=== PATIENT | male | born 1975 | race Caucasian/White ===

== ENCOUNTER 2020-04-22 07:42 | Inpatient (IN) | payer BC, OTHER ==
[~2020-04-22] VITALS: Ht 172.7 cm; Wt 155.0 kg
[2020-04-22] MEDS ORDERED: ASPIRIN CHEWABLE 81 MG TABLET. PO ONE (08:00)
[2020-04-22] MEDS ORDERED: ONDANSETRON PF 4 MG/2 ML VIAL. IV ONE (08:00)
[2020-04-22] MEDS ORDERED: fentaNYL PF VIAL 100 MCG/2 ML VIAL IV ONE (08:00)
[2020-04-22 08:19] LABS: BASO # 0.1 x10^3/uL (0.0-0.2); BASO % 1 % (0-3); EOS # 0.2 x10^3/uL (0.0-0.7); EOS % 3 % (0-3); HEMATOCRIT 43.3 % (39.0-53.0); HEMOGLOBIN 15.1 g/dL (13.0-17.5); LYMPH # 2.4 x10^3/uL (1.0-4.8); LYMPH % 32 % (24-48); MEAN CORPUSCULAR HEMOGLOBIN 29 pg (25-35); MEAN CORPUSCULAR HGB CONC 35 g/dL (31-37); MEAN CORPUSCULAR VOLUME 83 fL (79-100); MONO # 0.6 x10^3/uL (0.0-1.1); MONO % 8 % (0-9); NEUT # 4.2 x10^3/uL (1.8-7.7); NEUT % 56 % (31-73); PLATELET COUNT 295 x10^3/uL (140-400); RED BLOOD COUNT 5.25 x10^6/uL (4.30-5.70); RED CELL DISTRIBUTION WIDTH 13.6 % (11.5-14.5); WHITE BLOOD COUNT 7.5 x10^3/uL (4.0-11.0)
[2020-04-22 08:24] LABS: CALCIUM 8.7 mg/dL (8.5-10.1); CREATININE 1.1 mg/dL (0.7-1.3); GFR 72.1
[2020-04-22 08:30] LABS: ALBUMIN 3.6 g/dL (3.4-5.0); ALBUMIN/GLOBULIN RATIO 1.2 (1.0-1.7); MAGNESIUM 2.1 mg/dL (1.8-2.4); TOTAL BILIRUBIN 0.3 mg/dL (0.2-1.0); TOTAL PROTEIN 6.7 g/dL (6.4-8.2)
--- NOTE | 2020-04-22 08:30 | RAD ---
CHEST AP ONLY History: Chest pain Comparison: July 07, 2012 Findings: Single view of the chest is submitted. There is no infiltrate, pneumothorax, or effusion. The pericardial cardiac silhouette is within normal limits in size. Impression: 1. There is no convincing radiographic evidence of acute cardiopulmonary disease. Electronically signed by: Bryce Noriega MD (04/22/2020 8:27 AM) [id number]
--- NOTE | 2020-04-22 09:23 | EKG ---
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
--- NOTE | 2020-04-22 10:28 | PHYS DOC ---
Past Medical History Past Medical History: No Pertinent History Past Surgical History: Other Additional Past Surgical Histo: VASECOMY, GALLBLADDER REMOVED Smoking Status: Light Tobacco Smoker Alcohol Use: None General Adult EDM: Chief Complaint: CHEST PAIN HPI: HPI: Patient is a 45-year-old male who presents with chest discomfort. He states it feels like a cramping in his chest. He has had a history of chronic palpitations he is worn a heart monitor in the past and it is always checked out okay. Is been a little more frequent over the last few days. He denies any shortness of breath. He denies any dyspnea on exertion. He denies any cough congestion or other upper respiratory type symptoms. He said no nausea vomiting or diaphoresis. [] Review of Systems: Review of Systems: Constitutional: Denies fever or chills. [] Eyes: Denies change in visual acuity. [] HENT: Denies nasal congestion or sore throat. [] Respiratory: Denies cough or shortness of breath. [] Cardiovascular: Per HPI. [] GI: Denies abdominal pain, nausea, vomiting, bloody stools or diarrhea. [] : Denies dysuria. [] Musculoskeletal: Denies back pain or joint pain. [] Integument: Denies rash. [] Neurologic: Denies headache, focal weakness or sensory changes. [] Endocrine: Denies polyuria or polydipsia. [] Lymphatic: Denies swollen glands. [] Psychiatric: Denies depression or anxiety. [] Heart Score: HEART Score for Chest Pain: HEART Score for Chest Pain Response (Comments) Value History Moderately Suspicious 1 ECG Nonspecific Repolarizatio 1 Age >45 - < 65 1 Risk Factors 1 or 2 Risk Factors 1 Troponin >1-<3x Normal Limit 1 Total 5 Risk Factors: Risk Factors: DM, Current or recent (<one month) smoker, HTN, HLP, family history of CAD, obesity. Risk Scores: Score 0 - 3: 2.5% MACE over next 6 weeks - Discharge Home Score 4 - 6: 20.3% MACE over next 6 weeks - Admit for Clinical Observation Score 7 - 10: 72.7% MACE over next 6 weeks - Early Invasive Strategies Current Medications: Current Medications Medications (Trade) Dose Ordered Sig/Jalen Start Time Stop Time Status Last Admin Dose Admin Aspirin (Aspirin Chewable) 324 mg 1X ONCE 04/22/20 08:00 04/22/20 08:10 DC 04/22/20 08:25 324 MG Fentanyl Citrate (Fentanyl 2ml Vial) 50 mcg 1X ONCE 04/22/20 08:00 04/22/20 08:10 DC 04/22/20 08:31 50 MCG Ondansetron HCl (Zofran) 4 mg 1X ONCE 04/22/20 08:00 04/22/20 08:10 DC 04/22/20 08:28 4 MG Allergies: Allergies: Allergies Coded Allergies Type Severity Reaction Last Updated Verified No Known Drug Allergies 04/22/20 No Physical Exam: PE: Constitutional: Well developed, well nourished, no acute distress, non-toxic appearance. [] HENT: Normocephalic, atraumatic, bilateral external ears normal, oropharynx moist, no oral exudates, nose normal. [] Eyes: PERRLA, EOMI, conjunctiva normal, no discharge. [] Neck: Normal range of motion, no tenderness, supple, no stridor. [] Cardiovascular:Heart rate regular rhythm, no murmur [] Lungs & Thorax: Bilateral breath sounds clear to auscultation [] Abdomen: Bowel sounds normal, soft, no tenderness, no masses, no pulsatile masses. [] Skin: Warm, dry, no erythema, no rash. [] Back: No tenderness, no CVA tenderness. [] Extremities: No tenderness, no cyanosis, no clubbing, ROM intact, no edema. [] Neurologic: Alert and oriented X 3, normal motor function, normal sensory function, no focal deficits noted. [] Psychologic: Affect normal, judgement normal, mood normal. [] Current Patient Data: Labs: Laboratory Tests Test 04/22/20 08:02 White Blood Count 7.5 x10^3/uL (4.0-11.0) Red Blood Count 5.25 x10^6/uL (4.30-5.70) Hemoglobin 15.1 g/dL (13.0-17.5) Hematocrit 43.3 % (39.0-53.0) Mean Corpuscular Volume 83 fL (79-100) Mean Corpuscular Hemoglobin 29 pg (25-35) Mean Corpuscular Hemoglobin Concent 35 g/dL (31-37) Red Cell Distribution Width 13.6 % (11.5-14.5) Platelet Count 295 x10^3/uL (140-400) Neutrophils (%) (Auto) 56 % (31-73) Lymphocytes (%) (Auto) 32 % (24-48) Monocytes (%) (Auto) 8 % (0-9) Eosinophils (%) (Auto) 3 % (0-3) Basophils (%) (Auto) 1 % (0-3) Neutrophils # (Auto) 4.2 x10^3/uL (1.8-7.7) Lymphocytes # (Auto) 2.4 x10^3/uL (1.0-4.8) Monocytes # (Auto) 0.6 x10^3/uL (0.0-1.1) Eosinophils # (Auto) 0.2 x10^3/uL (0.0-0.7) Basophils # (Auto) 0.1 x10^3/uL (0.0-0.2) Sodium Level 141 mmol/L (136-145) Potassium Level 4.0 mmol/L (3.5-5.1) Chloride Level 105 mmol/L (98-107) Carbon Dioxide Level 26 mmol/L (21-32) Anion Gap 10 (6-14) Blood Urea Nitrogen 12 mg/dL (8-26) Creatinine 1.1 mg/dL (0.7-1.3) Estimated GFR (Cockcroft-Gault) 72.1 BUN/Creatinine Ratio 11 (6-20) Glucose Level 110 mg/dL (70-99) H Calcium Level 8.7 mg/dL (8.5-10.1) Magnesium Level 2.1 mg/dL (1.8-2.4) Total Bilirubin 0.3 mg/dL (0.2-1.0) Aspartate Amino Transferase (AST) 36 U/L (15-37) Alanine Aminotransferase (ALT) 61 U/L (16-63) Alkaline Phosphatase 69 U/L (46-116) Troponin I Quantitative 0.036 ng/mL (0.000-0.055) Total Protein 6.7 g/dL (6.4-8.2) Albumin 3.6 g/dL (3.4-5.0) Albumin/Globulin Ratio 1.2 (1.0-1.7) Lipase 138 U/L (73-393) Laboratory Tests 04/22/20 08:02 Laboratory Tests 04/22/20 08:02 Vital Signs: Vital Signs Date Time Temp Pulse Resp B/P (MAP) Pulse Ox O2 Delivery O2 Flow Rate FiO2 04/22/20 09:15 59 138/83 (101) 98 Room Air 04/22/20 08:31 18 04/22/20 07:51 98.0 98.0 EKG: EKG: EKG: Normal sinus rhythm rate of [address]-T changes [] Radiology/Procedures: Radiology/Procedures: [] Impression: PROCEDURE: CHEST AP ONLY CHEST AP ONLY History: Chest pain Comparison: July 07, 2012 Findings: Single view of the chest is submitted. There is no infiltrate, pneumothorax, or effusion. The pericardial cardiac silhouette is within normal limits in size. Impression: 1. There is no convincing radiographic evidence of acute cardiopulmonary disease. Course & Med Decision Making: Course & Med Decision Making Pertinent Labs and Imaging studies reviewed. (See chart for details) [] Dragon Disclaimer: Dragon Disclaimer: This electronic medical record was generated, in whole or in part, using a voice recognition dictation system. Departure Departure Impression: Primary Impression: Chest pain Qualified Codes: R07.2 - Precordial pain Disposition: ADMITTED INPATIENT Admitting Physician: JAXSON Condition: STABLE Referrals: RITA THAYER MD (PCP) Justicifation of Admission Dx: Justifications for Admission: Justification of Admission Dx: Yes Angina: [facility] ISSA NANCE DO Apr 22, 2020 10:28
[2020-04-22] MEDS ORDERED: ONDANSETRON PF 4 MG/2 ML VIAL. IV PRN (10:30)
[2020-04-22] MEDS ORDERED: fentaNYL PF VIAL 100 MCG/2 ML VIAL IV PRN (10:30)
[2020-04-22] MEDS ORDERED: NITROGLYCERIN SUBLINGUAL 0.4 MG BOTTLE OF 25. SL PRN (10:30)
[2020-04-22] MEDS ORDERED: ACETAMINOPHEN 325 MG TABLET. PO PRN (10:30)
[2020-04-22 10:47] LABS: BILIRUBIN,URINE NEGATIVE (NEG); CLARITY,URINE CLEAR; COLOR,URINE YELLOW; NITRITE,URINE NEGATIVE (NEG); PROTEIN,URINE NEGATIVE (NEG-TRACE); UROBILINOGEN,URINE 0.2 mg/dL (0.2 mg/dL)
[2020-04-22 10:54] LABS: BARBITURATES NEG (NEG); BENZODIAZEPINES NEG (NEG); CANNABINOIDS NEG (NEG); COCAINE NEG (NEG); METHADONE NEG (NEG); OPIATES NEG (NEG); PHENCYCLIDINE NEG (NEG)
[2020-04-22 10:58] LABS: AMPHETAMINE/METHAMPHETAMINE NEG (NEG)
[2020-04-22 11:24] LABS: BACTERIA,URINE 0 /HPF (0-FEW); RBC,URINE 0 /HPF (0-2); SQUAMOUS EPITHELIAL CELL,UR OCC /LPF; WBC,URINE 0 /HPF (0-4)
[2020-04-22 11:45] VITALS: BP 151/85
--- NOTE | 2020-04-22 11:45 | NUR ---
Patient arrived to room 260 via wheelchair from ER at 1145. Patient A&OX4. VSS. No complaints of pain at this time. The patient, EDWARD MILLER, 45 y/o, M admitted by LOS SOARES MD, was given written information regarding hospital policies, unit procedures and contact persons. Valuables were checked and noted. Will continue to monitor.
[2020-04-22] MEDS ORDERED: OMEP40CA45 PO (12:12)
--- NOTE | 2020-04-22 13:02 | PDOC1 ---
History and Physical Date of Admission Date of Admission DATE: 04/22/20 TIME: 13:02 Identification/Chief Complaint Chief Complaint seen in er with angina 45-year-old male who presents with chest discomfort. feels like a cramping in his chest. He has had a history of chronic palpitations /// more frequent over the last few days. denies any shortness of breath. troponin i ok , not related to meals denies dyspnea on exertion. //denies cough congestion or other upper respiratory symptoms. He said no nausea vomiting or diaphoresis. no fever[] Past Medical History Past Medical History Past Medical History Past Medical History Past Medical History: No Pertinent History Past Surgical History: Other Additional Past Surgical Histo: VASECOMY, GALLBLADDER REMOVED Smoking Status: Light Tobacco Smoker Alcohol Use: None fhx copd GI: GERD Family History Family History: Chronic Bronchitis, Hypertension, Hypothyroidism Social History Smoke: No ALCOHOL: none Drugs: None Current Problem List Problem List Problems Medical Problems: (1) Chest pain Status: Acute Current Medications Current Medications Current Medications Aspirin (Aspirin Chewable) 324 mg 1X ONCE PO Last administered on 04/22/20at 08:25; Start 04/22/20 at 08:00; Stop 04/22/20 at 08:10; Status DC Fentanyl Citrate (Fentanyl 2ml Vial) 50 mcg 1X ONCE IV Last administered on 04/22/20at 08:31; Start 04/22/20 at 08:00; Stop 04/22/20 at 08:10; Status DC Ondansetron HCl (Zofran) 4 mg 1X ONCE IV Last administered on 04/22/20at 08:28; Start 04/22/20 at 08:00; Stop 04/22/20 at 08:10; Status DC Ondansetron HCl (Zofran) 4 mg PRN Q8HRS PRN IV NAUSEA/VOMITING; Start 04/22/20 at 10:30; Stop 04/23/20 at 10:29 Fentanyl Citrate (Fentanyl 2ml Vial) 50 mcg PRN Q1HR PRN IV PAIN; Start 04/22/20 at 10:30; Stop 04/23/20 at 10:29 Acetaminophen (Tylenol) 650 mg PRN Q4HRS PRN PO FEVER > 100.3'F; Start 04/22/20 at 10:30; Stop 04/23/20 at 10:29 Nitroglycerin (Nitrostat) 0.4 mg PRN Q5MIN PRN SL CHEST PAIN; Start 04/22/20 at 10:30; Stop 04/23/20 at 10:29 Active Scripts Active Reported Omeprazole 40 Mg Capsule. 1 Cap PO DAILY Allergies Allergies: Coded Allergies: No Known Drug Allergies (Unverified , 04/22/20) ROS Review of System Review of Systems: Review of Systems: Constitutional: Denies fever or chills. [] Eyes: Denies change in visual acuity. [] HENT: Denies nasal congestion or sore throat. [] Respiratory: Denies cough or shortness of breath. [] Cardiovascular: Per HPI. [] GI: Denies abdominal pain, nausea, vomiting, bloody stools or diarrhea. [] : Denies dysuria. [] Musculoskeletal: Denies back pain or joint pain. [] Integument: Denies rash. [] Neurologic: Denies headache, focal weakness or sensory changes. [] Endocrine: Denies polyuria or polydipsia. [] Lymphatic: Denies swollen glands. [] Psychiatric: Denies depression or anxiety. [] 14 pt ros otherwise neg PSYCHOLOGICAL ROS: No: Anxiety, Behavioral Disorder, Concentration difficultie, Decreased libido, Depression, Disorientation, Hallucinations, Hostility, Irritablity, Memory difficulties, Mood Swings, Obsessive thoughts, Physical abuse, Sexual abuse, Sleep disturbances, Suicidal ideation, Other ALLERGY AND IMMUNOLOGY: No: Hives, Insect Bite Sensitivity, Itchy/Watery Eyes, Nasal Congestion, Post Nasal Drip, Seasonal Allergies, Other Hematological and Lymphatic: No: Bleeding Problems, Blood Clots, Blood Transfusions, Brusing, Night Sweats, Pallor, Swollen Lymph Nodes, Other Respiratory: No: Cough, Hemoptysis, Orthopnea, Pleuritic Pain, Shortness of breath, SOB with excertion, Sputum Changes, Stridor, Tachypnea, Wheezing, Other Cardiovascular: yes Chest Pain, yes Palpitations Gastrointestinal: No Nausea, No Vomiting, No Abdominal Pain, No Diarrhea, No Constipation, No Melena, No Hematochezia, No Other Genitourinary: No Dysuria, No Frequency, No Incontinence, No Hematuria, No Ret ention, No Discharge, No Urgency, No Pain, No Flank Pain, No Other, No , No , No , No , No , No , No Musculoskeletal: No Gait Disturbance, No Joint Pain, No Joint Stiffness, No Joint Swelling, No Muscle Pain, No Muscular Weakness, No Pain In:, No Swelling In:, No Other Neurological: No Behavorial Changes, No Bowel/Bladder ControlChng, No Confusion, No Dizziness, No Gait Disturbance, No Headaches, No Impaired Coord/balance, No Memory Loss, No Numbness/Tingling, No Seizures, No Speech Problems, No Tremors, No Visual Changes, No Weakness, No Other Physical Exam Physical Exam Constitutional: Well developed, well nourished, no acute distress, non-toxic appearance. [] HENT: Normocephalic, atraumatic, oropharynx moist, no oral exudates, nose normal. [] Eyes: PERRLA, EOMI, conjunctiva normal, no discharge. [] Neck: Normal range of motion, no tenderness, supple, no stridor. [] Cardiovascular:Heart rate regular rhythm, no murmur [] Lungs & Thorax: Bilateral breath sounds clear to auscultation [] Abdomen: Bowel sounds normal, soft, no tenderness, no masses, no pulsatile masses. [] Skin: Warm, dry, no erythema, no rash. [] Back: No tenderness, no CVA tenderness. [] Extremities: No tenderness, no cyanosis, no clubbing, ROM intact, no edema. [] Neurologic: Alert and oriented X 3, normal motor function, normal sensory function, no focal deficits noted. [] Psychologic: Affect normal, judgment normal, mood normal. [] General: Alert, Oriented X3, Cooperative, No acute distress HEENT: Atraumatic, PERRLA, EOMI, Mucous membr. moist/pink Lungs: Clear to auscultation, Normal air movement Heart: S1S2, RRR, no thrills, no gallops Breasts: Not examined Abdomen: Normal bowel sounds, Soft Rectal Exam: not examined PELVIC: Examination not indicated Extremities: No cyanosis Neuro: Normal speech, Cranial nerves 3-12 NL Psych/Mental Status: Mental status NL, Mood NL Vitals Vitals Vital Signs Date Time Temp Pulse Resp B/P (MAP) Pulse Ox O2 Delivery O2 Flow Rate FiO2 04/22/20 11:45 97.9 64 18 151/85 (107) 98 Room Air 97.9 Labs Labs Laboratory Tests Test 04/22/20 08:02 04/22/20 10:36 White Blood Count 7.5 x10^3/uL (4.0-11.0) Red Blood Count 5.25 x10^6/uL (4.30-5.70) Hemoglobin 15.1 g/dL (13.0-17.5) Hematocrit 43.3 % (39.0-53.0) Mean Corpuscular Volume 83 fL (79-100) Mean Corpuscular Hemoglobin 29 pg (25-35) Mean Corpuscular Hemoglobin Concent 35 g/dL (31-37) Red Cell Distribution Width 13.6 % (11.5-14.5) Platelet Count 295 x10^3/uL (140-400) Neutrophils (%) (Auto) 56 % (31-73) Lymphocytes (%) (Auto) 32 % (24-48) Monocytes (%) (Auto) 8 % (0-9) Eosinophils (%) (Auto) 3 % (0-3) Basophils (%) (Auto) 1 % (0-3) Neutrophils # (Auto) 4.2 x10^3/uL (1.8-7.7) Lymphocytes # (Auto) 2.4 x10^3/uL (1.0-4.8) Monocytes # (Auto) 0.6 x10^3/uL (0.0-1.1) Eosinophils # (Auto) 0.2 x10^3/uL (0.0-0.7) Basophils # (Auto) 0.1 x10^3/uL (0.0-0.2) Sodium Level 141 mmol/L (136-145) Potassium Level 4.0 mmol/L (3.5-5.1) Chloride Level 105 mmol/L (98-107) Carbon Dioxide Level 26 mmol/L (21-32) Anion Gap 10 (6-14) Blood Urea Nitrogen 12 mg/dL (8-26) Creatinine 1.1 mg/dL (0.7-1.3) Estimated GFR (Cockcroft-Gault) 72.1 BUN/Creatinine Ratio 11 (6-20) Glucose Level 110 mg/dL (70-99) Calcium Level 8.7 mg/dL (8.5-10.1) Magnesium Level 2.1 mg/dL (1.8-2.4) Total Bilirubin 0.3 mg/dL (0.2-1.0) Aspartate Amino Transf (AST/SGOT) 36 U/L (15-37) Alanine Aminotransferase (ALT/SGPT) 61 U/L (16-63) Alkaline Phosphatase 69 U/L (46-116) Troponin I Quantitative 0.036 ng/mL (0.000-0.055) Total Protein 6.7 g/dL (6.4-8.2) Albumin 3.6 g/dL (3.4-5.0) Albumin/Globulin Ratio 1.2 (1.0-1.7) Lipase 138 U/L (73-393) Urine Collection Type Unknown Urine Color Yellow Urine Clarity Clear Urine pH 5.0 (<5.0-8.0) Urine Specific [place] 1.025 (1.000-1.030) Urine Protein Negative mg/dL (NEG-TRACE) Urine Glucose (UA) Negative mg/dL (NEG) Urine Ketones (Stick) Negative mg/dL (NEG) Urine Blood Negative (NEG) Urine Nitrite Negative (NEG) Urine Bilirubin Negative (NEG) Urine Urobilinogen Dipstick 0.2 mg/dL (0.2 mg/dL) Urine Leukocyte Esterase Negative (NEG) Urine RBC 0 /HPF (0-2) Urine WBC 0 /HPF (0-4) Urine Squamous Epithelial Cells Occ /LPF Urine Bacteria 0 /HPF (0-FEW) Urine Mucus Marked /LPF Urine Opiates Screen Neg (NEG) Urine Methadone Screen Neg (NEG) Urine Barbiturates Neg (NEG) Urine Phencyclidine Screen Neg (NEG) Urine Amphetamine/Methamphetamine Neg (NEG) Urine Benzodiazepines Screen Neg (NEG) Urine Cocaine Screen Neg (NEG) Urine Cannabinoids Screen Neg (NEG) Urine Ethyl Alcohol Neg (NEG) Laboratory Tests Test 04/22/20 08:02 04/22/20 10:36 White Blood Count 7.5 x10^3/uL (4.0-11.0) Red Blood Count 5.25 x10^6/uL (4.30-5.70) Hemoglobin 15.1 g/dL (13.0-17.5) Hematocrit 43.3 % (39.0-53.0) Mean Corpuscular Volume 83 fL (79-100) Mean Corpuscular Hemoglobin 29 pg (25-35) Mean Corpuscular Hemoglobin Concent 35 g/dL (31-37) Red Cell Distribution Width 13.6 % (11.5-14.5) Platelet Count 295 x10^3/uL (140-400) Neutrophils (%) (Auto) 56 % (31-73) Lymphocytes (%) (Auto) 32 % (24-48) Monocytes (%) (Auto) 8 % (0-9) Eosinophils (%) (Auto) 3 % (0-3) Basophils (%) (Auto) 1 % (0-3) Neutrophils # (Auto) 4.2 x10^3/uL (1.8-7.7) Lymphocytes # (Auto) 2.4 x10^3/uL (1.0-4.8) Monocytes # (Auto) 0.6 x10^3/uL (0.0-1.1) Eosinophils # (Auto) 0.2 x10^3/uL (0.0-0.7) Basophils # (Auto) 0.1 x10^3/uL (0.0-0.2) Sodium Level 141 mmol/L (136-145) Potassium Level 4.0 mmol/L (3.5-5.1) Chloride Level 105 mmol/L (98-107) Carbon Dioxide Level 26 mmol/L (21-32) Anion Gap 10 (6-14) Blood Urea Nitrogen 12 mg/dL (8-26) Creatinine 1.1 mg/dL (0.7-1.3) Estimated GFR (Cockcroft-Gault) 72.1 BUN/Creatinine Ratio 11 (6-20) Glucose Level 110 mg/dL (70-99) Calcium Level 8.7 mg/dL (8.5-10.1) Magnesium Level 2.1 mg/dL (1.8-2.4) Total Bilirubin 0.3 mg/dL (0.2-1.0) Aspartate Amino Transf (AST/SGOT) 36 U/L (15-37) Alanine Aminotransferase (ALT/SGPT) 61 U/L (16-63) Alkaline Phosphatase 69 U/L (46-116) Troponin I Quantitative 0.036 ng/mL (0.000-0.055) Total Protein 6.7 g/dL (6.4-8.2) Albumin 3.6 g/dL (3.4-5.0) Albumin/Globulin Ratio 1.2 (1.0-1.7) Lipase 138 U/L (73-393) Urine Collection Type Unknown Urine Color Yellow Urine Clarity Clear Urine pH 5.0 (<5.0-8.0) Urine Specific [place] 1.025 (1.000-1.030) Urine Protein Negative mg/dL (NEG-TRACE) Urine Glucose (UA) Negative mg/dL (NEG) Urine Ketones (Stick) Negative mg/dL (NEG) Urine Blood Negative (NEG) Urine Nitrite Negative (NEG) Urine Bilirubin Negative (NEG) Urine Urobilinogen Dipstick 0.2 mg/dL (0.2 mg/dL) Urine Leukocyte Esterase Negative (NEG) Urine RBC 0 /HPF (0-2) Urine WBC 0 /HPF (0-4) Urine Squamous Epithelial Cells Occ /LPF Urine Bacteria 0 /HPF (0-FEW) Urine Mucus Marked /LPF Urine Opiates Screen Neg (NEG) Urine Methadone Screen Neg (NEG) Urine Barbiturates Neg (NEG) Urine Phencyclidine Screen Neg (NEG) Urine Amphetamine/Methamphetamine Neg (NEG) Urine Benzodiazepines Screen Neg (NEG) Urine Cocaine Screen Neg (NEG) Urine Cannabinoids Screen Neg (NEG) Urine Ethyl Alcohol Neg (NEG) Images Images HEST AP ONLY History: Chest pain Comparison: July 07, 2012 Findings: Single view of the chest is submitted. There is no infiltrate, pneumothorax, or effusion. The pericardial cardiac silhouette is within normal limits in size. Impression: 1. There is no convincing radiographic evidence of acute cardiopulmonary disease. Electronically signed by: Randall Holder MD (04/22/2020 8:27 AM) [id number] DICTATED and SIGNED BY: RANDALL HOLDER MD DATE: 04/22/20 0827 VTE Prophylaxis Ordered VTE Prophylaxis Devices: Yes VTE Pharmacological Prophylaxi: Yes Assessment/Plan Assessment/Plan Impression: Chest pain MORBID OBESITY GERD hyperlipidemia ADMITTED cvc bed Cardiology consult serial troponin i PROTONIX PO statin dvt prophylaxis D/W ER DR and family in room Justicifation of Admission Dx: Justifications for Admission: Justification of Admission Dx: Yes Angina: [place] Worsening of Sym LOS SOARES MD Apr 22, 2020 13:02
--- NOTE | 2020-04-22 13:55 | PDOC2 ---
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 Munoz SOURCE Source: Chart review, Patient HISTORY OF PRESENT ILLNESS HISTORY OF PRESENT ILLNESS This is a 45 yo male who presented secondary to chest pain. Patient reports pain began a couple days ago. Located in his left chest. Describes as stabbing in nature. This morning. Had some dizziness and was slightly SOA with the pain so he came in for further evaluation and treatment. Reports h/o intermittent fluttering in his chest for which he has worn a heart monitor a couple of times. Denies any palpitations or fluttering while experiencing the stabbing pain in his left chest. NO diaphoresis or nausea/vomiting. PAST MEDICAL HISTORY GI: GERD PAST SURGICAL HISTORY Past Surgical History: Cholecystectomy, Other (vasectomy) FAMILY HISTORY Family History: Coronary Artery Disease (father ), Diabetes, Hypertension SOCIAL HISTORY Smoke: No ALCOHOL: occassional Drugs: None Lives: with Family CURRENT MEDICATIONS CURRENT MEDICATIONS Current Medications Medications (Trade) Dose Ordered Sig/Jaeln Route PRN Reason Start Time Stop Time Status Last Admin Dose Admin Aspirin (Aspirin Chewable) 324 mg 1X ONCE PO 04/22/20 08:00 04/22/20 08:10 DC 04/22/20 08:25 Fentanyl Citrate (Fentanyl 2ml Vial) 50 mcg 1X ONCE IV 04/22/20 08:00 04/22/20 08:10 DC 04/22/20 08:31 Ondansetron HCl (Zofran) 4 mg 1X ONCE IV 04/22/20 08:00 04/22/20 08:10 DC 04/22/20 08:28 ALLERGIES ALLERGIES: Coded Allergies: No Known Drug Allergies (Unverified , 04/22/20) ROS Review of System 14 point ROS conducted with pertinent positives noted above in HPI PHYSICAL EXAM General: Alert, Oriented X3, Cooperative, No acute distress HEENT: Atraumatic, Mucous membr. moist/pink Lungs: Clear to auscultation, Normal air movement Heart: Regular rate Abdomen: Soft, Other (obese ) Extremities: No edema, Normal pulses Skin: No significant lesion Neuro: Normal speech, Sensation intact Psych/Mental Status: Mental status NL, Mood NL MUSCULOSKELETAL: No deformity VITALS/I&O VITALS/I&O: Vital Signs Date Time Temp Pulse Resp B/P (MAP) Pulse Ox O2 Delivery O2 Flow Rate FiO2 04/22/20 12:00 Room Air 04/22/20 11:45 97.9 64 18 151/85 (107) 98 97.9 LABS Lab: Laboratory Tests Test 04/22/20 08:02 04/22/20 10:36 White Blood Count 7.5 x10^3/uL (4.0-11.0) Red Blood Count 5.25 x10^6/uL (4.30-5.70) Hemoglobin 15.1 g/dL (13.0-17.5) Hematocrit 43.3 % (39.0-53.0) Mean Corpuscular Volume 83 fL (79-100) Mean Corpuscular Hemoglobin 29 pg (25-35) Mean Corpuscular Hemoglobin Concent 35 g/dL (31-37) Red Cell Distribution Width 13.6 % (11.5-14.5) Platelet Count 295 x10^3/uL (140-400) Neutrophils (%) (Auto) 56 % (31-73) Lymphocytes (%) (Auto) 32 % (24-48) Monocytes (%) (Auto) 8 % (0-9) Eosinophils (%) (Auto) 3 % (0-3) Basophils (%) (Auto) 1 % (0-3) Neutrophils # (Auto) 4.2 x10^3/uL (1.8-7.7) Lymphocytes # (Auto) 2.4 x10^3/uL (1.0-4.8) Monocytes # (Auto) 0.6 x10^3/uL (0.0-1.1) Eosinophils # (Auto) 0.2 x10^3/uL (0.0-0.7) Basophils # (Auto) 0.1 x10^3/uL (0.0-0.2) Sodium Level 141 mmol/L (136-145) Potassium Level 4.0 mmol/L (3.5-5.1) Chloride Level 105 mmol/L (98-107) Carbon Dioxide Level 26 mmol/L (21-32) Anion Gap 10 (6-14) Blood Urea Nitrogen 12 mg/dL (8-26) Creatinine 1.1 mg/dL (0.7-1.3) Estimated GFR (Cockcroft-Gault) 72.1 BUN/Creatinine Ratio 11 (6-20) Glucose Level 110 mg/dL (70-99) H Calcium Level 8.7 mg/dL (8.5-10.1) Magnesium Level 2.1 mg/dL (1.8-2.4) Total Bilirubin 0.3 mg/dL (0.2-1.0) Aspartate Amino Transferase (AST) 36 U/L (15-37) Alanine Aminotransferase (ALT) 61 U/L (16-63) Alkaline Phosphatase 69 U/L (46-116) Troponin I Quantitative 0.036 ng/mL (0.000-0.055) Total Protein 6.7 g/dL (6.4-8.2) Albumin 3.6 g/dL (3.4-5.0) Albumin/Globulin Ratio 1.2 (1.0-1.7) Lipase 138 U/L (73-393) Urine Collection Type Unknown Urine Color Yellow Urine Clarity Clear Urine pH 5.0 (<5.0-8.0) Urine Specific [place] 1.025 (1.000-1.030) Urine Protein Negative mg/dL (NEG-TRACE) Urine Glucose (UA) Negative mg/dL (NEG) Urine Ketones (Stick) Negative mg/dL (NEG) Urine Blood Negative (NEG) Urine Nitrite Negative (NEG) Urine Bilirubin Negative (NEG) Urine Urobilinogen Dipstick 0.2 mg/dL (0.2 mg/dL) Urine Leukocyte Esterase Negative (NEG) Urine RBC 0 /HPF (0-2) Urine WBC 0 /HPF (0-4) Urine Squamous Epithelial Cells Occ /LPF Urine Bacteria 0 /HPF (0-FEW) Urine Mucus Marked /LPF Urine Opiates Screen Neg (NEG) Urine Methadone Screen Neg (NEG) Urine Barbiturates Neg (NEG) Urine Phencyclidine Screen Neg (NEG) Urine Amphetamine/Methamphetamine Neg (NEG) Urine Benzodiazepines Screen Neg (NEG) Urine Cocaine Screen Neg (NEG) Urine Cannabinoids Screen Neg (NEG) Urine Ethyl Alcohol Neg (NEG) Laboratory Tests 04/22/20 08:02 Laboratory Tests 04/22/20 08:02 ASSESSMENT/PLAN ASSESSMENT/PLAN 1. Chest pain, mixed features. Initial trop 0.03. EKG without acute findings. 2. Hypertension; mildly elevated 3. Hyperlipidemia 4. Probable VIKTOR 5. Obesity Recommendations ASA Lipids Trend troponin Add lisinopril for BP control Echo to assess LV systolic function Will need further ischemic workup given chest pain, risk factors. Outpatient sleep study Further pending above. EDMAR SANDOVAL MD 04/23/20 1255: CARDIAC CONSULT ASSESSMENT/PLAN ASSESSMENT/PLAN Late entry for 04/22/2020 Patient seen and examined. Agree with above nurse practitioner note. This 45-year-old man presenting with unstable angina. I discussed the possibility of heart catheterization versus outpatient stress testing for further delineation. At this present time he will discuss with his family and notify us in the near future. SUE FERRARA APRN Apr 22, 2020 13:55 EDMAR SANDOVAL MD Apr 23, 2020 12:55
[2020-04-22 14:24] LABS: CHOLESTEROL/HDL RATIO 4.4
[2020-04-22 15:00] VITALS: BP 159/92
[2020-04-22] MEDS: ASPIRIN ENTERIC COATED 81 MG TABLET.DR. PO SCH (17:06)
[2020-04-22] MEDS: LISINOPRIL 10 MG TABLET PO SCH (17:07)
[2020-04-22 19:00] VITALS: BP 156/86
[2020-04-22] MEDS ORDERED: ATORVASTATIN CALCIUM 20 MG TABLET PO SCH (21:00)
[2020-04-22 23:28] VITALS: BP 166/89
[2020-04-23] VITALS (15 sets, daily range): BP systolic 105–169; BP diastolic 69–86
[2020-04-23] MEDS: ASPIRIN ENTERIC COATED 81 MG TABLET.DR. PO SCH (08:37)
[2020-04-23] MEDS: LISINOPRIL 10 MG TABLET PO SCH (08:38)
[2020-04-23] MEDS ORDERED: LIDOCAINE 1% PF 2 ML VIAL. ONE (10:27)
[2020-04-23] MEDS ORDERED: IODIXANOL 320 MG/ML 100 ML VIAL. ONE (10:27)
[2020-04-23] MEDS ORDERED: NITROGLYCERIN 200 MCG/2 ML SYRINGE FOR CATH/VASC LAB. ONE (11:06)
[2020-04-23] MEDS ORDERED: MIDAZOLAM HCL/PF 2 MG/2 ML VIAL. ONE (11:06)
[2020-04-23] MEDS ORDERED: VERAPAMIL 5 MG/2 ML VIAL. ONE (11:06)
[2020-04-23] MEDS ORDERED: HEPARIN for IV BOLUS 10,000 UNIT/10 ML VIAL. ONE (11:06)
[2020-04-23] MEDS ORDERED: fentaNYL PF VIAL 100 MCG/2 ML VIAL ONE (11:06)
[2020-04-23] MEDS ORDERED: IODIXANOL 320 MG/ML 100 ML VIAL. IART ONE (11:30)
[2020-04-23] MEDS ORDERED: MIDAZOLAM HCL/PF 2 MG/2 ML VIAL. IV ONE (11:30)
[2020-04-23] MEDS ORDERED: VERAPAMIL 5 MG/2 ML VIAL. IART ONE (11:30)
[2020-04-23] MEDS ORDERED: HEPARIN for IV BOLUS 10,000 UNIT/10 ML VIAL. IART ONE (11:30)
[2020-04-23] MEDS ORDERED: NITROGLYCERIN 200 MCG/2 ML SYRINGE FOR CATH/VASC LAB. IART ONE (11:30)
[2020-04-23] MEDS ORDERED: fentaNYL PF VIAL 100 MCG/2 ML VIAL IV ONE (11:30)
[2020-04-23] MEDS ORDERED: LIDOCAINE 1% PF 2 ML VIAL. INJ ONE (11:30)
--- NOTE | 2020-04-23 11:31 | NUR ---
SS following for discharge planning. SS reviewed pt chart and discussed with pt RN. Pt is from home and is currently on room air. Pt having left heart cath today. SS will continue to follow for discharge planning.
--- NOTE | 2020-04-23 12:36 | CARD ---
MR#: [id number] Date of Study: 04/23/2020 Ordering Physician: EDMAR NASCIMENTO, Referring Physician: EDMAR NASCIMENTO, Tech: RT Mis (Kaylan) ROOPA APPROVED REPORT Technologist: RT Mis (R) ROOPA Nurse: Luisa Worthington R.N. Procedure(s) performed: FLOURO TIME 5.9 MINUTES DOSE 94.32Vvuo9 CONTRAST 84 CC'S VISIPAQUE MODERATE SEDATION 31 MINUTES LHC, Coronary angiography HISTORY The patient is a 45 year-old male with a history of : hypertension, dyslipidemia. INDICATION The indication(s) include : unstable angina . CS Clinical Frailty Scale [facility] Clinical Frailty Scale: Managing Well Heart Failure Heart Failure: Yes If Yes, Newly Diagnosed: No If Yes, HF Type: Diastolic If Yes, NYHA Class: Class II PROCEDURE NARRATIVE CLINICAL INDICATION: Patient is a 45-year-old man with a strong family history of coronary disease who presented with [facility] unstable anginal symptoms. After discussion of the risks and benefits of cardiac catheterizati on the patient decided to proceed with a left heart catheterization. INFORMED CONSENT: After explaining the risks and benefits of the procedure and alternatives, informed consent was obtained. The patient was brought electively to the cardiac catheterization lab. A timeout was performed confi rming the patient's name, date of , procedure, and site of procedure. All necessary personnel w ere wearing the appropriate protective equipment and radiation monitor devices. (See nursing notes for medications administered). ACCESS: The right wrist was sterilely prepped and draped in the usual fashion. The right wrist was infiltrat ed with 1 mL of 2% lidocaine for subcutaneous anesthesia. A 6 Filipino Terumo glide sheath was inserte d into the right radial artery without difficulty. CORONARY ANGIOGRAPHY: Right and left coronary angiography was performed using a JL 3 5 and JR4 catheters.. Left ventricul ar end diastolic pressure was obtained with a TIGl catheter and pullback was performed. All catheter exchanges and advancements were performed over a guidewire. CLOSURE: At case completion the right radial sheath was removed and a Terumo radial band was applied with 13 m l of air. COMPLICATIONS: The patient tolerated the procedure well and there were no immediate complications. FINDINGS: HEMODYNAMICS: LVEDP 18 mm Hg No gradient on LV to aortic pullback. AO: 128/78 CORONARY ANGIOGRAPHY: LM is a large caliber vessel with normal angiographic appearance. LAD is a large caliber vessel with normal angiographic appearance. D1 is a moderate caliber vessel with normal angiographic apeparance. LCx is a moderate to large caliber non-dominant vessel with normal angiographic appearance. OM1 is a moderate caliber vessel with normal angiographic appearance. RCA is a large caliber dominant vessel with normal angiographic appearance. RPDA and RPL are moderate caliber vessels with normal angiographic appearance. *Overall flow suggestive of endothelial dysfunction. Conclusion 1. Acute on chronic diastolic heart failure. LVEDP 18 mmHg 2. No significant coronary disease. Recommendations Aggressive Medical Therapy Signed by : Edmar Nascimento, Electronically Approved : 04/23/2020 12:36:19
--- NOTE | 2020-04-23 12:42 | PDOC ---
PROGRESS NOTES Chief Complaint Chief Complaint Chest pain, mixed features. Initial trop 0.03. EKG without acute findings. 2. Hypertension; mildly elevated 3. Hyperlipidemia 4. Probable VIKTOR 5. Obesity History of Present Illness History of Present Illness Mr Castillo is a 45 yo M w/ PMHx morbid obesity, GERD who presents with chest discomfort. Feels like a cramping in his chest. He has had a history of chronic palpitations /// more frequent over the last few days. Denies dyspnea on exertion. //denies cough congestion or other upper respiratory symptoms. He said no nausea vomiting or diaphoresis. no fever. 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 Troponin 0 0.03. EKG NSR. Troponin still mildly elevated overnight. His pain was a bit decreased this morning. Given his mother's recent CAD diagnosis and his symptoms he has elected to move forward with cardiac catheterization today. Vitals Vitals Vital Signs Date Time Temp Pulse Resp B/P (MAP) Pulse Ox O2 Delivery O2 Flow Rate FiO2 04/23/20 11:48 61 16 99 Room Air 04/23/20 11:39 2.0 04/23/20 11:00 98.1 147/84 (105) 98.1 Physical Exam General: Alert, Oriented X3, Cooperative, No acute distress Heart: Regular rate Abdomen: Soft, Other (obese ) Extremities: No edema, Normal pulses Skin: No significant lesion Labs LABS Laboratory Tests Test 04/22/20 14:15 04/22/20 17:45 Troponin I Quantitative 0.030 ng/mL (0.000-0.055) 0.035 ng/mL (0.000-0.055) Assessment and Plan Assessmemt and Plan Problems Medical Problems: (1) Chest pain Status: Acute Comment Review of Relevant I have reviewed the following items hans (where applicable) has been applied. Labs Laboratory Tests Test 04/22/20 08:02 04/22/20 10:36 04/22/20 14:15 04/22/20 17:45 White Blood Count 7.5 x10^3/uL (4.0-11.0) Red Blood Count 5.25 x10^6/uL (4.30-5.70) Hemoglobin 15.1 g/dL (13.0-17.5) Hematocrit 43.3 % (39.0-53.0) Mean Corpuscular Volume 83 fL (79-100) Mean Corpuscular Hemoglobin 29 pg (25-35) Mean Corpuscular Hemoglobin Concent 35 g/dL (31-37) Red Cell Distribution Width 13.6 % (11.5-14.5) Platelet Count 295 x10^3/uL (140-400) Neutrophils (%) (Auto) 56 % (31-73) Lymphocytes (%) (Auto) 32 % (24-48) Monocytes (%) (Auto) 8 % (0-9) Eosinophils (%) (Auto) 3 % (0-3) Basophils (%) (Auto) 1 % (0-3) Neutrophils # (Auto) 4.2 x10^3/uL (1.8-7.7) Lymphocytes # (Auto) 2.4 x10^3/uL (1.0-4.8) Monocytes # (Auto) 0.6 x10^3/uL (0.0-1.1) Eosinophils # (Auto) 0.2 x10^3/uL (0.0-0.7) Basophils # (Auto) 0.1 x10^3/uL (0.0-0.2) Sodium Level 141 mmol/L (136-145) Potassium Level 4.0 mmol/L (3.5-5.1) Chloride Level 105 mmol/L (98-107) Carbon Dioxide Level 26 mmol/L (21-32) Anion Gap 10 (6-14) Blood Urea Nitrogen 12 mg/dL (8-26) Creatinine 1.1 mg/dL (0.7-1.3) Estimated GFR (Cockcroft-Gault) 72.1 BUN/Creatinine Ratio 11 (6-20) Glucose Level 110 mg/dL (70-99) Calcium Level 8.7 mg/dL (8.5-10.1) Magnesium Level 2.1 mg/dL (1.8-2.4) Total Bilirubin 0.3 mg/dL (0.2-1.0) Aspartate Amino Transf (AST/SGOT) 36 U/L (15-37) Alanine Aminotransferase (ALT/SGPT) 61 U/L (16-63) Alkaline Phosphatase 69 U/L (46-116) Troponin I Quantitative 0.036 ng/mL (0.000-0.055) 0.030 ng/mL (0.000-0.055) 0.035 ng/mL (0.000-0.055) Total Protein 6.7 g/dL (6.4-8.2) Albumin 3.6 g/dL (3.4-5.0) Albumin/Globulin Ratio 1.2 (1.0-1.7) Triglycerides Level 162 mg/dL (0-150) Cholesterol Level 225 mg/dL (0-200) LDL Cholesterol, Calculated 142 mg/dL (0-100) VLDL Cholesterol, Calculated 32 mg/dL (0-40) Non-HDL Cholesterol Calculated 174 mg/dL (0-129) HDL Cholesterol 51 mg/dL (40-60) Cholesterol/HDL Ratio 4.4 Lipase 138 U/L (73-393) Thyroid Stimulating Hormone (TSH) 1.144 uIU/mL (0.358-3.74) Urine Collection Type Unknown Urine Color Yellow Urine Clarity Clear Urine pH 5.0 (<5.0-8.0) Urine Specific [place] 1.025 (1.000-1.030) Urine Protein Negative mg/dL (NEG-TRACE) Urine Glucose (UA) Negative mg/dL (NEG) Urine Ketones (Stick) Negative mg/dL (NEG) Urine Blood Negative (NEG) Urine Nitrite Negative (NEG) Urine Bilirubin Negative (NEG) Urine Urobilinogen Dipstick 0.2 mg/dL (0.2 mg/dL) Urine Leukocyte Esterase Negative (NEG) Urine RBC 0 /HPF (0-2) Urine WBC 0 /HPF (0-4) Urine Squamous Epithelial Cells Occ /LPF Urine Bacteria 0 /HPF (0-FEW) Urine Mucus Marked /LPF Urine Opiates Screen Neg (NEG) Urine Methadone Screen Neg (NEG) Urine Barbiturates Neg (NEG) Urine Phencyclidine Screen Neg (NEG) Urine Amphetamine/Methamphetamine Neg (NEG) Urine Benzodiazepines Screen Neg (NEG) Urine Cocaine Screen Neg (NEG) Urine Cannabinoids Screen Neg (NEG) Urine Ethyl Alcohol Neg (NEG) Laboratory Tests Test 04/22/20 14:15 04/22/20 17:45 Troponin I Quantitative 0.030 ng/mL (0.000-0.055) 0.035 ng/mL (0.000-0.055) Medications Current Medications Aspirin (Aspirin Chewable) 324 mg 1X ONCE PO Last administered on 04/22/20at 08:25; Start 04/22/20 at 08:00; Stop 04/22/20 at 08:10; Status DC Fentanyl Citrate (Fentanyl 2ml Vial) 50 mcg 1X ONCE IV Last administered on 04/22/20at 08:31; Start 04/22/20 at 08:00; Stop 04/22/20 at 08:10; Status DC Ondansetron HCl (Zofran) 4 mg 1X ONCE IV Last administered on 04/22/20at 08:28; Start 04/22/20 at 08:00; Stop 04/22/20 at 08:10; Status DC Ondansetron HCl (Zofran) 4 mg PRN Q8HRS PRN IV NAUSEA/VOMITING; Start 04/22/20 at 10:30; Stop 04/23/20 at 10:29; Status DC Fentanyl Citrate (Fentanyl 2ml Vial) 50 mcg PRN Q1HR PRN IV PAIN; Start 04/22/20 at 10:30; Stop 04/23/20 at 10:29; Status DC Acetaminophen (Tylenol) 650 mg PRN Q4HRS PRN PO FEVER > 100.3'F; Start 04/22/20 at 10:30; Stop 04/23/20 at 10:29; Status DC Nitroglycerin (Nitrostat) 0.4 mg PRN Q5MIN PRN SL CHEST PAIN; Start 04/22/20 at 10:30; Stop 04/23/20 at 10:29; Status DC Atorvastatin Calcium (Lipitor) 20 mg QHS PO Last administered on 04/22/20at 22:10; Start 04/22/20 at 21:00 Aspirin (Ecotrin) 81 mg DAILYWBKFT PO Last administered on 04/23/20at 08:37; Start 04/22/20 at 17:00 Lisinopril (Prinivil) 10 mg DAILY PO Last administered on 04/23/20at 08:38; Start 04/22/20 at 17:00 Lidocaine HCl (Xylocaine-Mpf 1% 2ml Vial) 2 ml STK-MED ONCE .ROUTE ; Start at 10:27; Stop 04/23/20 at 10:27; Status DC Iodixanol (Visipaque 320) 100 ml STK-MED ONCE .ROUTE ; Start 04/23/20 at 10:27; Stop 04/23/20 at 10:28; Status DC Heparin Sodium/ Sodium Chloride 1,000 ml @ As Directed STK-MED ONCE .ROUTE ; Start 04/23/20 at 10:28; Stop 04/23/20 at 10:28; Status DC Midazolam HCl (Versed) 2 mg STK-MED ONCE .ROUTE ; Start 04/23/20 at 11:06; Stop 04/23/20 at 11:06; Status DC Fentanyl Citrate (Fentanyl 2ml Vial) 100 mcg STK-MED ONCE .ROUTE ; Start 04/23/20 at 11:06; Stop 04/23/20 at 11:06; Status DC Verapamil HCl (Verapamil) 5 mg STK-MED ONCE .ROUTE ; Start 04/23/20 at 11:06; Stop 04/23/20 at 11:06; Status DC Heparin Sodium (Porcine) (Heparin Sodium) 10,000 unit STK-MED ONCE .ROUTE ; Start 04/23/20 at 11:06; Stop 04/23/20 at 11:06; Status DC Nitroglycerin (Nitroglycerin) 200 mcg STK-MED ONCE .ROUTE ; Start 04/23/20 at 11:06; Stop 04/23/20 at 11:06; Status DC Nitroglycerin (Nitroglycerin) 200 mcg 1X ONCE IART Last administered on 04/23/20at 11:38; Start 04/23/20 at 11:30; Stop 04/23/20 at 11:31; Status DC Verapamil HCl (Verapamil) 2.5 mg 1X ONCE IART Last administered on 04/23/20at 11:40; Start 04/23/20 at 11:30; Stop 04/23/20 at 11:31; Status DC Heparin Sodium (Porcine) (Heparin Sodium) 2,500 unit 1X ONCE IART Last administered on 04/23/20at 11:40; Start 04/23/20 at 11:30; Stop 04/23/20 at 11:31; Status DC Heparin Sodium/ Sodium Chloride (HEPARIN for ARTERIAL LINE FLUSH) 1,000 unit 1X ONCE IART Last administered on 04/23/20at 11:38; Start 04/23/20 at 11:30; Stop 04/23/20 at 11:31; Status DC Midazolam HCl (Versed) 2 mg 1X ONCE IV Last administered on 04/23/20at 11:40; Start 04/23/20 at 11:30; Stop 04/23/20 at 11:31; Status DC Fentanyl Citrate (Fentanyl 2ml Vial) 100 mcg 1X ONCE IV Last administered on 04/23/20at 11:39; Start 04/23/20 at 11:30; Stop 04/23/20 at 11:31; Status DC Iodixanol (Visipaque 320) 100 ml 1X ONCE IART Last administered on 04/23/20at 11:38; Start 04/23/20 at 11:30; Stop 04/23/20 at 11:31; Status DC Lidocaine HCl (Xylocaine-Mpf 1% 2ml Vial) 1 ml 1X ONCE INJ Last administered on 04/23/20at 11:39; Start 04/23/20 at 11:30; Stop 04/23/20 at 11:31; Status DC Active Scripts Active Reported Omeprazole 40 Mg Capsule.dr [place] Cap PO DAILY Vitals/I & O Vital Sign - Last 24 Hours 04/22/20 04/22/20 04/22/20 04/22/20 15:00 17:07 19:00 20:00 Temp 98.2 98.2 98.2 98.2 Pulse 59 72 64 Resp 17 16 B/P (MAP) 159/92 (114) 172/92 156/86 (109) Pulse Ox 97 96 O2 Delivery Room Air Room Air Room Air 04/22/20 04/23/20 04/23/20 04/23/20 23:28 03:25 07:00 08:00 Temp 97.7 97.7 98.1 97.7 97.7 98.1 Pulse 81 58 58 Resp 20 20 18 B/P (MAP) 166/89 (114) 128/69 (88) 146/70 (95) Pulse Ox 97 96 96 O2 Delivery Room Air Room Air Room Air Room Air 04/23/20 04/23/20 04/23/20 04/23/20 08:38 11:00 11:39 11:40 Temp 98.1 98.1 Pulse 56 57 60 Resp 18 10 B/P (MAP) 146/70 147/84 (105) Pulse Ox 95 99 O2 Delivery Room Air Nasal Cannula O2 Flow Rate 2.0 04/23/20 11:48 Pulse 61 Resp 16 Pulse Ox 99 O2 Delivery Room Air Intake and Output 04/22/20 04/22/20 04/23/20 15:00 23:00 07:00 Intake Total 0 ml 860 ml 0 ml Output Total 0 ml 200 ml 200 ml Balance 0 ml 660 ml -200 ml BARTOLO TORREZ MD Apr 23, 2020 12:42
[2020-04-23] MEDS ORDERED: ATOR20TA58 PO (15:25)
[2020-04-23] MEDS ORDERED: LISI-338 PO (15:25)
--- NOTE | 2020-04-23 15:28 | PDOC3 ---
Discharge Summary Visit Information Date of Admission: Apr 22, 2020 Date of Discharge: Apr 23, 2020 Admitting Diagnosis: Chest pain, elevated troponin I Final Diagnosis Problems Medical Problems: (1) Chest pain Status: Acute Brief Hospital Course Allergies Allergies Coded Allergies Type Severity Reaction Last Updated Verified No Known Drug Allergies 04/22/20 No Vital Signs Vital Signs Date Time Temp Pulse Resp B/P (MAP) Pulse Ox O2 Delivery O2 Flow Rate FiO2 04/23/20 15:08 Room Air 04/23/20 13:28 58 97 04/23/20 11:48 16 04/23/20 11:39 2.0 04/23/20 11:00 98.1 147/84 (105) 98.1 Lab Results Laboratory Tests Test 04/22/20 08:02 04/22/20 10:36 04/22/20 14:15 04/22/20 17:45 White Blood Count 7.5 x10^3/uL (4.0-11.0) Red Blood Count 5.25 x10^6/uL (4.30-5.70) Hemoglobin 15.1 g/dL (13.0-17.5) Hematocrit 43.3 % (39.0-53.0) Mean Corpuscular Volume 83 fL (79-100) Mean Corpuscular Hemoglobin 29 pg (25-35) Mean Corpuscular Hemoglobin Concent 35 g/dL (31-37) Red Cell Distribution Width 13.6 % (11.5-14.5) Platelet Count 295 x10^3/uL (140-400) Neutrophils (%) (Auto) 56 % (31-73) Lymphocytes (%) (Auto) 32 % (24-48) Monocytes (%) (Auto) 8 % (0-9) Eosinophils (%) (Auto) 3 % (0-3) Basophils (%) (Auto) 1 % (0-3) Neutrophils # (Auto) 4.2 x10^3/uL (1.8-7.7) Lymphocytes # (Auto) 2.4 x10^3/uL (1.0-4.8) Monocytes # (Auto) 0.6 x10^3/uL (0.0-1.1) Eosinophils # (Auto) 0.2 x10^3/uL (0.0-0.7) Basophils # (Auto) 0.1 x10^3/uL (0.0-0.2) Sodium Level 141 mmol/L (136-145) Potassium Level 4.0 mmol/L (3.5-5.1) Chloride Level 105 mmol/L (98-107) Carbon Dioxide Level 26 mmol/L (21-32) Anion Gap 10 (6-14) Blood Urea Nitrogen 12 mg/dL (8-26) Creatinine 1.1 mg/dL (0.7-1.3) Estimated GFR (Cockcroft-Gault) 72.1 BUN/Creatinine Ratio 11 (6-20) Glucose Level 110 mg/dL (70-99) Calcium Level 8.7 mg/dL (8.5-10.1) Magnesium Level 2.1 mg/dL (1.8-2.4) Total Bilirubin 0.3 mg/dL (0.2-1.0) Aspartate Amino Transf (AST/SGOT) 36 U/L (15-37) Alanine Aminotransferase (ALT/SGPT) 61 U/L (16-63) Alkaline Phosphatase 69 U/L (46-116) Troponin I Quantitative 0.036 ng/mL (0.000-0.055) 0.030 ng/mL (0.000-0.055) 0.035 ng/mL (0.000-0.055) Total Protein 6.7 g/dL (6.4-8.2) Albumin 3.6 g/dL (3.4-5.0) Albumin/Globulin Ratio 1.2 (1.0-1.7) Triglycerides Level 162 mg/dL (0-150) Cholesterol Level 225 mg/dL (0-200) LDL Cholesterol, Calculated 142 mg/dL (0-100) VLDL Cholesterol, Calculated 32 mg/dL (0-40) Non-HDL Cholesterol Calculated 174 mg/dL (0-129) HDL Cholesterol 51 mg/dL (40-60) Cholesterol/HDL Ratio 4.4 Lipase 138 U/L (73-393) Thyroid Stimulating Hormone (TSH) 1.144 uIU/mL (0.358-3.74) Urine Collection Type Unknown Urine Color Yellow Urine Clarity Clear Urine pH 5.0 (<5.0-8.0) Urine Specific [place] 1.025 (1.000-1.030) Urine Protein Negative mg/dL (NEG-TRACE) Urine Glucose (UA) Negative mg/dL (NEG) Urine Ketones (Stick) Negative mg/dL (NEG) Urine Blood Negative (NEG) Urine Nitrite Negative (NEG) Urine Bilirubin Negative (NEG) Urine Urobilinogen Dipstick 0.2 mg/dL (0.2 mg/dL) Urine Leukocyte Esterase Negative (NEG) Urine RBC 0 /HPF (0-2) Urine WBC 0 /HPF (0-4) Urine Squamous Epithelial Cells Occ /LPF Urine Bacteria 0 /HPF (0-FEW) Urine Mucus Marked /LPF Urine Opiates Screen Neg (NEG) Urine Methadone Screen Neg (NEG) Urine Barbiturates Neg (NEG) Urine Phencyclidine Screen Neg (NEG) Urine Amphetamine/Methamphetamine Neg (NEG) Urine Benzodiazepines Screen Neg (NEG) Urine Cocaine Screen Neg (NEG) Urine Cannabinoids Screen Neg (NEG) Urine Ethyl Alcohol Neg (NEG) Laboratory Tests Test 04/22/20 17:45 Troponin I Quantitative 0.035 ng/mL (0.000-0.055) Brief Hospital Course Mr Castillo is a 45 yo M w/ PMHx morbid obesity, GERD who presents with chest d iscomfort. Feels like a cramping in his chest. He has had a history of chronic palpitations /// more frequent over the last few days. Denies dyspnea on exertion. //denies cough congestion or other upper respiratory symptoms. He said no nausea vomiting or diaphoresis. no fever. 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 Troponin 0 0.03. EKG NSR. Troponin still mildly elevated overnight. His pain was a bit decreased this morning. Given his mother's recent CAD diagnosis and his symptoms he has elected to move forward with cardiac catheterization. CARDIAC CATH RESULTS: ACCESS: The right wrist was sterilely prepped and draped in the usual fashion. The right wrist was infiltrated with 1 mL of 2% lidocaine for subcutaneous anesthesia. A 6 [place] Terumo glide sheath was inserted into the right radial artery without difficulty. CORONARY ANGIOGRAPHY: Right and left coronary angiography was performed using a JL 3 5 and JR4 catheters.. Left ventricular end diastolic pressure was obtained with a TIGl catheter and pullback was performed. All catheter exchanges and advancements were performed over a guidewire. CLOSURE: At case completion the right radial sheath was removed and a Terumo radial band was applied with 13 ml of air. COMPLICATIONS: The patient tolerated the procedure well and there were no immediate complications. FINDINGS: HEMODYNAMICS: LVEDP 18 mm Hg No gradient on LV to aortic pullback. AO: 128/78 CORONARY ANGIOGRAPHY: LM is a large caliber vessel with normal angiographic appearance. LAD is a large caliber vessel with normal angiographic appearance. D1 is a moderate caliber vessel with normal angiographic apeparance. LCx is a moderate to large caliber non-dominant vessel with normal angiographic appearance. OM1 is a moderate caliber vessel with normal angiographic appearance. RCA is a large caliber dominant vessel with normal angiographic appearance. RPDA and RPL are moderate caliber vessels with normal angiographic appearance. *Overall flow suggestive of endothelial dysfunction. Conclusion 1. Acute on chronic diastolic heart failure. LVEDP 18 mmHg 2. No significant coronary disease. Recommendations Aggressive Medical Therapy Problem list: Chest pain, mixed features. Initial trop 0.03. EKG without acute findings. Hypertension; mildly elevated Hyperlipidemia Probable VIKTOR Obesity Consults: Cardiology Greater than 30 minutes spent on counseling and medication, order on day of discharge. Discharge Information Condition at Discharge: Improved Follow Up: Weeks (2) Disposition/Orders: D/C to Home Scheduled Atorvastatin Calcium (Atorvastatin Calcium) 20 Mg Tablet, 20 MG PO QHS for HLD for 90 Days, #90 Ref 3 Prescribed by: BARTOLO TORREZ MD on 04/23/20 1525 Lisinopril (Lisinopril) 5 Mg Tablet, 1 TAB PO DAILY for HTN, #90 Ref 1 Prescribed by: BARTOLO TORREZ MD on 04/23/20 1525 Omeprazole (Omeprazole) 40 Mg Capsule.dr, 1 CAP PO DAILY for gerd, (Reported) Entered as Reported by: YA PERKINS on 04/22/20 1212 Last Action: New Order on 04/22/201211 by YA PERKINS Justicifation of Admission Dx: Justifications for Admission: Justification of Admission Dx: Yes Angina: [place] Worsening of Sym BARTOLO TORRZE MD Apr 23, 2020 15:28
--- NOTE | 2020-04-23 17:30 | NUR ---
Discharge Note: ED[facility] MILLER [facility] Discharge instructions and discharge home medications reviewed with Patient and a copy given. All questions have been answered and understanding verbalized. The following instructions and handouts were given: discharge instructions, lisinopril info, atorvastatin info, diet info, wt loss info, post cath instructions/radial site care, CP info, HTN info. Discontinued lines and drains: Peripheral IV intact. Patient discharged to Home or Self Care with Self via Ambulated at 1730.
== END 2020-04-23 17:30 | disposition home or self-care (01) | DRG 287 ==
LOC: ER 07:42 → 2 SOUTH 10:22
PROVIDERS: ADMIT Family Medicine; ATTEND Family Medicine
PROC: 4A023N7 Measurement of Cardiac Sampling and Pressure, Left Heart, Percutaneous Approach (ICD-10-PCS; principal; 2020-04-23)
PROC: B211YZZ Fluoroscopy of Multiple Coronary Arteries using Other Contrast (ICD-10-PCS; 2020-04-23)
DX: R07.89 Other chest pain (principal); Z68.43 Body mass index [BMI] 50.0-59.9, adult; I10 Essential (primary) hypertension; E78.5 Hyperlipidemia, unspecified; K21.9 Gastro-esophageal reflux disease without esophagitis; G47.33 Obstructive sleep apnea (adult) (pediatric); E66.9 Obesity, unspecified; F17.200 Nicotine dependence, unspecified, uncomplicated; Z71.89 Other specified counseling; Z90.49 Acquired absence of other specified parts of digestive tract; Z82.5 Family history of asthma and other chronic lower respiratory diseases; Z83.3 Family history of diabetes mellitus; Z82.49 Family history of ischemic heart disease and other diseases of the circulatory system
CPT/HCPCS: 36415; 71045; 80053; 80061; 80307; 81001; 83690; 83735; 84443; 84484; 85025; 93005; 93458; 96374; 96375; C1769; C1892; J1644; J2250; J2405; J3010; J3490; Q9967; 99285-25; G0378

== ENCOUNTER 2021-12-20 08:22 | Emergency (ER) | payer BC, OTHER ==
[~2021-12-20] VITALS: Ht 172.7 cm; Wt 160.6 kg
[~2021-12-20 08:22] MED LIST: ATOR20TA58 PO; LISI5TAB15 PO; OMEP40CA7 PO
--- NOTE | 2021-12-20 08:55 | PHYS DOC ---
Past Medical History Past Medical History: No Pertinent History Past Surgical History: Cholecystectomy, Other Additional Past Surgical Histo: VASECOMY Smoking Status: Never Smoker Alcohol Use: Occasionally General Adult EDM: Chief Complaint: LOWER EXT PAIN HPI: HPI: Patient is a 46 year old male who presents with left knee pain. Pain started last week at work when he stepped out of truck and did not realize that he was stepping with his left leg into a hole in pavement. He describes a valgus stress on his left knee. Has had medial knee pain since. Does describe swelling of the knee. Denies any warmth or overlying redness. Denies fever/chills. States that prior to this misstep his knee was feeling totally normal. Review of Systems: Review of Systems: Constitutional: Denies fever or chills. [] HENT: Denies nasal congestion or sore throat. [] Respiratory: Denies cough or shortness of breath. [] Cardiovascular: Denies chest pain or edema. [] Musculoskeletal: Reports left knee pain Heart Score: C/O Chest Pain: No Allergies: Allergies: Allergies Coded Allergies Type Severity Reaction Last Updated Verified No Known Drug Allergies 04/22/20 No Physical Exam: PE: Constitutional: Well developed, well nourished, no acute distress, non-toxic appearance. [] HENT: Normocephalic, atraumatic Cardiovascular: Normal rate Lungs & Thorax: Normal work of Skin: Warm, dry, no erythema, no rash. [] Extremities: Tenderness to palpation at the medial joint line, and the medial portion of the very proximal tibia. Does have pain with flexion over the medial portion of the joint. + pain with valgus stress. No pain with varus stress. No anterior or posterior laxity. + jacques with stress on medial compartment. No overlying redness or warmth. Neurologic: Alert and oriented X 3, normal motor function, normal sensory function, no focal deficits noted. [] Psychologic: Affect normal, judgement normal, mood normal. [] Current Patient Data: Vital Signs: Vital Signs Date Time Temp Pulse Resp B/P (MAP) Pulse Ox O2 Delivery O2 Flow Rate FiO2 12/20/21 08:23 97.9 69 22 166/92 (116) 96 Room Air 97.9 EKG: EKG: [] Radiology/Procedures: Radiology/Procedures: [] Impression: [facility] [address] [place] [address] IMAGING REPORT Signed PATIENT: EDWARD MILLEROUNT: [id number] : 1975 LOCATION: ER AGE: 46 SEX: M EXAM STATUS: REG ER ORD. PHYSICIAN: DANITZA CORADO MD REASON: MEDIAL KNEE PAIN PROCEDURE: KNEE LEFT 3V 3 views left knee 12/20/2021 9:31 AM Indication: Reason: MEDIAL KNEE PAIN / Spl. Instructions: / History: Comparison: None Findings: There is no acute fracture or dislocation. Articular surfaces are uninterupted and smooth. Soft tissues are unremarkable. Impression: No evidence of acute osseous abnormality. Electronically signed by: Tera Venegas MD (12/20/2021 10:04 AM) [id number] DICTATED and SIGNED BY: TERA VENEGAS MD DATE: 12/20/21 [id number] 0 Course & Med Decision Making: Course & Med Decision Making Pertinent Labs and Imaging studies reviewed. (See chart for details) Patient a 46-year-old male who presents with a medial left knee pain after described valgus stress on the knee. Ddx includes MCL injury, medial meniscus injury, and less likely tibial plateau fracture. Will check knee XR. Referral made for outpatient ortho evaluation. Yaneth Disclaimer: Yaneth Disclaimer: This electronic medical record was generated, in whole or in part, using a voice recognition dictation system. Departure Departure Impression: Primary Impression: Left knee pain Disposition: 01 HOME / SELF CARE / HOMELESS Condition: STABLE Referrals: RITA THAYER MD (PCP) DESTINY CHRISTOPHER MD Call Dr. Christopher's office to schedule an appointment. Patient Instructions: Medial Collateral Knee Ligament Sprain with Phase I Rehab-SportsMed Additional Instructions: Your x-ray did not show any bony injuries of your knee. There is concern that you may have injured ligament or meniscus in your knee. If your pain persist you will need to see an orthopedic doctor for further work- up. You may need further specialized testing such as an MRI to confirm diagnosis. In the meantime please rest your knee. You can use an [id number] knee brace if you feel that it helps your symptoms. When resting please elevate your leg to help with swelling. For pain tylenol and ibuprofen are best used on a schedule. Please alternate between the two. -Tylenol 1000 mg every 6 hours (do not exceed 4000 mg in one day) -Ibuprofen 400 mg every 6 hours. Take with food. Do not take for more than 1 week. DANITZA CORADO MD Dec 20, 2021 08:55
--- NOTE | 2021-12-20 10:06 | RAD ---
3 views left knee 12/20/2021 9:31 AM Indication: Reason: MEDIAL KNEE PAIN / Spl. Instructions: / History: Comparison: None Findings: There is no acute fracture or dislocation. Articular surfaces are uninterupted and smooth. Soft tissues are unremarkable. Impression: No evidence of acute osseous abnormality. Electronically signed by: Tera Arce MD (12/20/2021 10:04 AM) [id number]
[2021-12-20 10:38] VITALS: BP 144/85
== END 2021-12-20 10:40 | disposition home or self-care (01) ==
LOC: ER 08:30
DX: M25.562 Pain in left knee (principal); Z90.49 Acquired absence of other specified parts of digestive tract; G89.11 Acute pain due to trauma; W22.8XXA Striking against or struck by other objects, initial encounter; Y93.89 Activity, other specified; Y92.89 Other specified places as the place of occurrence of the external cause; Y99.8 Other external cause status
CPT/HCPCS: 73562; 99283